=== PATIENT | male | born 1985 | race Caucasian/White ===

== ENCOUNTER 2022-07-18 08:02 | Emergency (ER) | payer BC, SELFPAY ==
--- NOTE | 2022-07-18 08:06 | ED.URI ---
HPI - URI/Sore Throat General Chief Complaint: Upper Respiratory Infection Stated Complaint: SORE THROAT/STREP EXPOSURE Time Seen by Provider: 07/18/22 08:06 Source: patient and RN notes reviewed History of Present Illness HPI Narrative: Patient is a 37-year-old male who presents to urgent care with complaints of sore throat. Patient states that 2 out of his 3 children have strep. States his sore throat started last night. Denies any fever, nausea, vomiting, headache or body aches. No other acute complaints. No acute distress noted. Patient aware of the plan of care. Some parts of this dictation were generated by voice recognition software and may contain typographical and/or grammatical inaccuracies. Related Data Home Medications Medication Instructions Recorded Confirmed albuterol sulfate 90 mcg/actuation inhalation 07/18/22 aerosol inhaler betamethasone dipropionate 0.05 % applic topical 07/18/22 topical cream vedolizumab 300 mg intravenous 300 mg IV ONCE 07/18/22 07/18/22 solution (Entyvio) Allergies Allergy/AdvReac Type Severity Reaction Status Date / Time Penicillins Allergy Hives Verified 07/18/22 08:10 Review of Systems Review of Systems: CONSTITUTIONAL: Denies fever, chills, or sweats. EYES: Denies visual changes, redness, or discharge. ENT: Denies rhinorrhea, congestion, or otalgia. Reports of sore throat CARDIOVASCULAR: Denies chest pain, palpitations, or edema. RESPIRATORY: Denies cough or dyspnea. GASTROINTESTINAL: Denies abdominal pain, nausea, vomiting, or diarrhea. GENITOURINARY: Denies dysuria or hematuria. SKIN: Denies rash or itching. MUSCULOSKELETAL: Denies back pain, joint pain, or myalgia. NEUROLOGIC: Denies headache, numbness, or weakness. All other systems reviewed are negative, except as documented in HPI. PMFSH Comments At the time of my signature, I reviewed and agree with the nursing past medical, surgical, social, and family history. There is no relevant family history pertinent to the patient complaint. Exam Narrative: GENERAL: This is a well-nourished, well-developed patient, in no apparent distress. HEAD: normocephalic, atraumatic. EYES: PERRL. Sclera clear/white. Vision is grossly intact. EARS: External ears normal, auditory canals clear and without drainage, TMs normal without perforation. Hearing grossly intact. NOSE: External nose normal with no obvious nasal discharge, nares without redness, no rhinorrhea. THROAT: Mucous membranes moist, mild erythema noted posterior pharynx with moderate postnasal drainage NECK: Neck supple CARDIOVASCULAR: Regular rate and rhythm without murmurs, gallops, or rubs. RESPIRATORY: Clear to auscultation. Breath sounds equal bilaterally. No wheezes, rales, or rhonchi. SKIN: warm, intact with no suspicious lesions or rash, good texture and turgor. NEURO: awake, alert, and oriented to person, place and time. There were no obvious focal neurologic abnormalities. EXTREMITIES: No clubbing, cyanosis, or edema. Course Course Level of Care: Express Care Visit Vital Signs Vital signs: Vital Signs Temperature 98.9 F 07/18/22 08:11 Pulse Rate 94 07/18/22 08:11 Respiratory Rate 16 07/18/22 08:11 Blood Pressure 121/73 07/18/22 08:11 Pulse Oximetry 100 07/18/22 08:11 Temperature 98.9 F 07/18/22 08:11 Pulse Rate 94 07/18/22 08:11 Respiratory Rate 16 07/18/22 08:11 Blood Pressure 121/73 07/18/22 08:11 Pulse Oximetry 100 07/18/22 08:11 reviewed MDM - URI/Sore Throat MDM Narrative Medical decision making narrative: Due to the lack of resources, unable to complete a rapid strep test. Due to your exposure, will treat to cover strep. Advised patient to complete the oral antibiotic regimen as prescribed. Be sure to eat and drink with the medication. Use an [id number] antihistamine for postnasal drainage. Use Tylenol/ibuprofen as needed. Use a humidifier at night. You are considered contagious
[2022-07-18 08:11] VITALS: BP 121/73; PULSE 94; RESP 16; TEMP 37.2; O2SAT 100
== END 2022-07-18 08:35 | disposition home or self-care (01) ==
PROVIDERS: Emergency Provider Nurse Practitioner Family
DX: J02.9 Acute pharyngitis, unspecified (principal); Z20.818 Contact with and (suspected) exposure to other bacterial communicable diseases; J45.909 Unspecified asthma, uncomplicated; K50.90 Crohn's disease, unspecified, without complications; Z86.16 Personal history of COVID-19
CPT/HCPCS: 99213; G0463

== ENCOUNTER 2024-01-02 15:12 | Emergency (ER) | payer BC, SELFPAY ==
[2024-01-02 15:28] VITALS: BP 124/76; PULSE 79; RESP 16; TEMP 36.7; O2SAT 97
--- NOTE | 2024-01-02 16:00 | ED.GENADULT ---
HPI - General Adult General Chief complaint: Skin/Abscess/Foreign Body Stated complaint: RASH/PAIN Time Seen by Provider: 01/02/24 16:01 Source: patient Mode of arrival: ambulatory Limitations: no limitations History of Present Illness HPI narrative: 38-year-old male patient presents to the [facility] with complaints of a rash that is painful and burning. Patient states that he was driving 1200 miles from a [place] last week in and started having some back pain to the right side but a associated with a long ride. Patient states he noticed he started having some numbness tingling and burning sensation going down the right leg. About a day ago noticed a little rash to the his back, right side of the groin and right leg. Denies fevers, body aches or chills. Patient does have history of Crohn's disease. Related Data Home Medications Medication Instructions Recorded Confirmed albuterol sulfate 90 mcg/actuation 2 puff inhalation Q4H PRN wheezing 07/18/22 07/18/22 aerosol inhaler betamethasone dipropionate 0.05 % 1 applic topical DAILY 07/18/22 07/18/22 topical cream vedolizumab 300 mg intravenous 300 mg IV ONCE 07/18/22 07/18/22 solution (Entyvio) budesonide 3 mg mg PO 01/02/24 capsule,delayed,extended release Allergies Allergy/AdvReac Type Severity Reaction Status Date / Time Penicillins Allergy Hives Verified 07/18/22 08:10 Review of Systems Review of Systems: CONSTITUTIONAL: Denies fever, chills, or sweats. EYES: Denies visual changes, redness, or discharge. ENT: Denies rhinorrhea, congestion, sore throat, or otalgia. CARDIOVASCULAR: Denies chest pain, palpitations, or edema. RESPIRATORY: Denies cough or dyspnea. GASTROINTESTINAL: Denies abdominal pain, nausea, vomiting, or diarrhea. GENITOURINARY: Denies dysuria or hematuria. SKIN: Positive rash , denies itching. MUSCULOSKELETAL: Denies back pain, joint pain, or myalgia. NEUROLOGIC: Denies headache, numbness, or weakness. PSYCHIATRIC: Denies anxiety or depression. [facility] Past Medical History Medical History (Updated 01/02/24 @ 16:20 by SKIP Santacruz) Crohn's disease Comments At the time of my signature I agree with nursing past medical history, surgical, social, and family history. There is no relevant family history pertinent to the presenting complaint. Exam Narrative: GENERAL: Well-appearing, well-nourished, and in no acute distress. HEAD: Normocephalic, atraumatic. EYES: PERRLA and EOMI. ENT: Nares clear, no rhinorrhea or epistaxis. Mucous membranes moist. NECK: Supple. No lymphadenopathy CHEST: Clear to auscultation. No respiratory distress. HEART: Regular rate and rhythm. No murmur heard. Normal peripheral pulses. ABDOMEN: Soft, nontender, nondistended, normal active bowel sounds. EXTREMITIES: Normal range of motion. No edema. SKIN: Warm, dry, patient has blistery rash noted to the lumbar area of the right side of the back blistery at rash is noted to the right-sided groin and right back of the leg. No open wounds or drainage noted. NEURO: No focal deficits. Alert and oriented x3. Course Course Level of Care: Express Care Visit Vital Signs Vital signs: Vital Signs Temperature 36.7 C 01/02/24 15:28 Pulse Rate 79 01/02/24 15:28 Respiratory Rate 16 01/02/24 15:28 Blood Pressure 124/76 01/02/24 15:28 Pulse Oximetry 97 01/02/24 15:28 Temperature 36.7 C 01/02/24 15:28 Pulse Rate 79 01/02/24 15:28 Respiratory Rate 16 01/02/24 15:28 Blood Pressure 124/76 01/02/24 15:28 Pulse Oximetry 97 01/02/24 15:28 At the time of my signature I agree with nursing past medical history, surgical, social, and family history. There is no relevant family history pertinent to the presenting complaint. Medical Decision Making MDM Narrative Medical decision making narrative: Discussed with patient that it appears that he has shingles plan of care is to discharge him home with antiviral thera
== END 2024-01-02 16:30 | disposition home or self-care (01) ==
PROVIDERS: Emergency Provider Nurse Practitioner Family
DX: B02.7 Disseminated zoster (principal); K50.90 Crohn's disease, unspecified, without complications
CPT/HCPCS: 99213; G0463

== ENCOUNTER 2025-08-01 16:46 | Emergency (ER) | payer BC, SELFPAY ==
[2025-08-01 16:57] VITALS: BP 119/74; PULSE 77; RESP 16; TEMP 36.5; O2SAT 98
--- NOTE | 2025-08-01 17:08 | ED_ITS ---
HPI - General Adult General Chief complaint: Extremity Problem,Nontraumatic Stated complaint: R foot infected/ingrown toenail Time Seen by Provider: 08/01/25 17:09 Source: patient Mode of arrival: ambulatory Limitations: no limitations History of Present Illness HPI narrative: 40 yo M presents with infection to R great toe for 2 days. Getting progressively worse. Denies injury. Normal ROM and distal NV intact. All systems reviewed and negative except as noted above. Related Data Home Medications ?Medication ?Instructions ?Recorded ?Confirmed ?Last Taken ?Type albuterol sulfate 90 mcg/actuation 2 puff inhalation Q 4H PRN wheezing 07/18/22 08/01/25 Unknown History aerosol inhaler vedolizumab 300 mg intravenous 300 mg IV ONCE 07/18/22 01/02/24 Unknown History solution (Entyvio) betamethasone dipropionate 0.05 % 1 applic topical Q12 H 08/01/25 08/01/25 Unknown History lotion ketoconazole 2 % shampoo 1 applic topical .2 x weekly 08/01/25 08/01/25 Unknown History naltrexone 4.5 mg capsule (Naltrex) 4.5 mg PO HS 08/0108/01/25 Unknown History pimecrolimus 1 % topical cream 1 applic topical BID 08/01/25 Unknown History risankizumab-rzaa 360 mg/2.4 mL 360 mg subcut .bi sheldon hy 08/01/25 08/01/25 Unknown History (150 mg/mL) subcut wearable injector (Skyrizi) Allergies Allergy/AdvReac Type Severity Reaction Status Date / Time Penicillins Allergy Hives Verified 08/01/25 16:53 [facility] Past Medical History Medical History (Updated 08/01/25 @ 17:14 by Frida Moore, [employer]) Crohn's disease Comments At time of signature, agree with nursing past medical, surgical, social and family history. There is no relevant family history pertinent to the presenting complaint. Exam Narrative: GENERAL: This is a well-nourished, well-developed patient, in no apparent distress. HEAD: normocephalic, atraumatic. EYES: PERRL. Sclera clear/white. Vision is grossly intact. EARS: External ears normal NOSE: External nose normal NECK: Neck supple, non-tender without lymphadenopathy, masses or thyromegaly. CARDIOVASCULAR: Regular rate and rhythm without murmurs, gallops, or rubs. RESPIRATORY: Clear to auscultation. Breath sounds equal bilaterally. No wheezes, rales, or rhonchi. SKIN: warm, Dry, intact with no suspicious lesions or rash, good texture and turgor. erythema and swelling to medial aspect R great toe. Tender on palpation. no fluctuance concerning for abscess or paronychia. NEURO: awake, alert, and oriented to person, place and time. There were no obvious focal neurologic abnormalities. EXTREMITIES: No joint tenderness, effusion, or edema noted. Course Course Level of Care: Express Care Visit Vital Signs Vital signs: Vital Signs Temperature 36.5 C 08/01/25 16:57 Pulse Rate 77 08/01/25 16:57 Respiratory Rate 16 08/01/25 16:57 Blood Pressure 119/74 08/01/25 16:57 Pulse Oximetry 98 08/01/25 16:57 Temperature 36.5 C 08/01/25 16:57 Pulse Rate 77 08/01/25 16:57 Respiratory Rate 16 08/01/25 16:57 Blood Pressure 119/74 08/01/25 16:57 Pulse Oximetry 98 08/01/25 16:57 reviewed MDM MDM Narrative Medical decision making narrative: will treat cellulitis right great toe with cephalexin. Recommend follow-up with Podiatry. Differential Diagnosis Differential Diagnosis: Differential diagnostic considerations for skin/abscess/foreign body issues include abscess of skin or subcutaneous tissue, viral exanthem, dermatophytosis, urticaria, herpes zoster, allergic reaction to drug, cellulitis, eczema, insect bites, impetigo, contact dermatitis, vasculitis. Discharge Plan Discharge Clinical Impression: Infection of toe Patient Disposition: Home Condition: Stable Instructions: Antibiotic Form, Cellulitis (ED) Additional Instructions: Take antibiotic as prescribed until gone. Take Tylenol or ibuprofen every 6-8 hours as needed for pain. Follow-up with podiatry. Patient Language: Peruvian Prescriptions: New cephalexin 500 mg capsule 500 mg PO Q8H 7 Days Qty: 21 0RF No Action Naltrex 4.5 mg capsule 4.5 mg PO HS Skyrizi 360 mg/2.4 mL (150 mg/mL) wearable injector 360 mg SUBCUT .bi monthy pimecrolimus 1 % cream 1 applic TOPICAL BID betamethasone dipropionate 0.05 % lotion 1 applic TOPICAL Q12H ketoconazole 2 % shampoo 1 applic TOPICAL .2 x weekly albuterol sulfate 90 mcg/actuation HFA aerosol inhaler 2 puff INHALATION Q4H PRN (Reason: wheezing) Entyvio 300 mg Recon Soln 300 mg IV ONCE Rx Instructions: administer over 30 mins Follow-up/Referrals: Alex Ozuna Jr., DPM [Physician, Podiatry] Referral Note: Follow-up with podiatry UNKNOWN,DOCTOR [Primary Care Provider] Time of Disposition: 17:14
== END 2025-08-01 17:18 | disposition home or self-care (01) ==
PROVIDERS: Emergency Provider Nurse Practitioner Family
DX: L03.031 Cellulitis of right toe (principal); K50.90 Crohn's disease, unspecified, without complications
CPT/HCPCS: 99213; G0463